=== PATIENT | male | born 1965 | race Caucasian/White ===

== ENCOUNTER 2019-11-25 11:00 | Outpatient (CLI) | payer MEDICAID, SELFPAY | END 2019-11-25 23:59 | disposition home or self-care (01) | LOC: MLB 11:00 → EDSTATUS 12-05 15:55 | PROVIDERS: ATTEND Internal Medicine Gastroenterology | DX: Z01.812 Encounter for preprocedural laboratory examination (principal); Z20.828 Contact with and (suspected) exposure to other viral communicable diseases; R42 Dizziness and giddiness | CPT/HCPCS: U0003-CS ==